=== PATIENT | male | born 1990 | race Caucasian/White ===

== ENCOUNTER 2023-10-14 16:19 | Emergency (ER) | payer SELFPAY ==
[~2023-10-14] VITALS: Ht 172.7 cm; Wt 97.3 kg
[2023-10-14 16:46] VITALS: BP 144/92; PULSE 98; RESP 16; TEMP 97.1; O2SAT 98
[2023-10-14 18:36] LABS: BASOPHILS % (AUTO) 0.2 % (0.0-2.0); EOSINOPHILS # (AUTO) 0.4 K/uL (0-0.4); EOSINOPHILS % (AUTO) 3.1 % (0.0-4.0); HEMATOCRIT 42.1 % (36-52); HEMOGLOBIN 13.9 g/dL (12.0-18.0); LYMPHOCYTES # (AUTO) 1.2 K/uL (2.0-11.5); LYMPHOCYTES % (AUTO) 9.5 % (20.5-51.1); MEAN CORPUSCULAR HEMOGLOBIN 27 pg (27-31); MEAN CORPUSCULAR HGB CONC 33 g/dL (33-37); MONOCYTES # (AUTO) 0.9 K/uL (0.8-1.0); MONOCYTES % (AUTO) 7.1 % (1.7-9.3); NEUTROPHILS # (AUTO) 10.2 K/uL (1.8-7.7); NEUTROPHILS % (AUTO) 80.1 % (42.2-75.2); PLATELET COUNT (AUTO) 437 K/uL (140-450); RED BLOOD CELL COUNT(AUTO) 5.13 MIL/uL (4.20-6.10); RED CELL DISTRIBUTION WIDTH 14.3 % (11.6-13.7); WHITE BLOOD COUNT (AUTO) 12.8 K/uL (4.8-10.8)
[2023-10-14 18:44] LABS: ANION GAP 13.4 (8-16); CALCIUM 9.9 mg/dL (8.5-10.1); CARBON DIOXIDE 29.5 mmol/L (21-32); POTASSIUM 3.9 mmol/L (3.5-5.1)
[2023-10-14] MEDS ORDERED: AMPICILLIN/SULBACTAM 3 GM in NACL 0.9% 100 ML IV ONE (20:25)
[2023-10-14] MEDS ORDERED: AMPICILLIN/SULBACTAM 3 GM VIAL ONE ×2 (20:35→20:37)
[2023-10-14] MEDS: AMPICILLIN/SULBACTAM 3 GM in NACL 0.9% 100 ML IV ONE (20:49)
[2023-10-14 21:19] VITALS: BP 145/90; PULSE 89; RESP 18; TEMP 97.7; O2SAT 98
[2023-10-14] MEDS ORDERED: CHLO473S62 PO (22:12)
[2023-10-14] MEDS ORDERED: CLIN300C2 PO (22:12)
[2023-10-14] MEDS ORDERED: AMOX1TAB8 PO (22:12)
[2023-10-14] MEDS ORDERED: IBUP-2213 PO (22:12)
== END 2023-10-14 22:18 | disposition left against medical advice (07) ==
LOC: MED 16:19
DX: K04.7 Periapical abscess without sinus (principal); Z79.899 Other long term (current) drug therapy
CPT/HCPCS: 36415; 70491; 80048; 85025; 96365; 99285; J0295; Q9967